=== PATIENT | female | born 1945 | race Caucasian/White ===

== ENCOUNTER 2019-11-14 07:47 | Outpatient (RCR) | payer MEDICARE, SELFPAY ==
--- NOTE | 2019-10-18 08:44 | PCWOUND ---
Patient called to cancel appointment due to not feeling well. States she will be contacting her Primary today. Appointment rescheduled for Tuesday10/22/19 at 10:00AM.
== END 2019-12-02 23:59 | disposition home or self-care (01) ==
LOC: ANHWOC 07:47
PROVIDERS: Visit Provider Plastic Surgery
DX: L98.499 Non-pressure chronic ulcer of skin of other sites with unspecified severity (principal)
CPT/HCPCS: 99212; G0463

== ENCOUNTER 2020-03-13 07:16 | Outpatient (RCR) | payer MEDICARE, SELFPAY ==
--- NOTE | 2020-01-15 08:58 | PCWOUND ---
WOCN NOTE Patient called to cancel until further notice due to fear of COVID 19. Patient to call weekly for care plan.
== END 2020-03-16 23:59 | disposition home or self-care (01) ==
LOC: ANHWOC 07:16
PROVIDERS: Visit Provider Plastic Surgery
DX: L98.499 Non-pressure chronic ulcer of skin of other sites with unspecified severity (principal)
CPT/HCPCS: 99212; A9270; G0463

== ENCOUNTER 2020-05-14 09:43 | Outpatient (RCR) | payer MEDICARE, SELFPAY | END 2020-07-28 12:26 | disposition home or self-care (01) | LOC: ANHWOC 09:43 | PROVIDERS: PCP Internal Medicine; Visit Provider Plastic Surgery | DX: L98.499 Non-pressure chronic ulcer of skin of other sites with unspecified severity (principal) | CPT/HCPCS: 99212; G0463 ==

== ENCOUNTER 2024-02-08 12:49 | Inpatient (IN) | payer MEDICARE, MEDICAID, SELFPAY ==
[2024-02-08] VITALS (20 sets, daily range): BP systolic 103–148; BP diastolic 45–107; PULSE 93–142; RESP 20–30; TEMP 35.8–36.8; O2SAT 95–100
--- NOTE | ~2024-02-08 | CT_ITS ---
EXAMINATION: CTA chest PE protocol DATE: 02/08/2024 17:09 CDT INDICATION: Shortness of breath. Elevated d-dimer. TECHNIQUE: Computed tomographic angiography (CTA) of the chest was performed with 100 mL Omnipaque-35 0 intravenous contrast. The dose-length product was 734.92 mGy-cm. Maximum intensity projection 3D-re constructions of the aorta and other arteries were constructed by the technologist on a separate work station. Automated exposure control and iterative reconstruction technique were employed. COMPARISON: CT report dated 11/20/2011. FINDINGS: Moderate left and small right pleural effusions. Study is technically adequate without evid ence for pulmonary embolism. There is atherosclerosis of the aorta and coronary arteries. Large hiata l hernia. There are changes of gastric bypass surgery. Cardiomegaly. No significant pericardial effus ion. There are patchy areas of consolidation and groundglass opacification bilaterally, suspicious fo r pneumonia. There is severe thoracic and upper lumbar spondylosis. IMPRESSION: 1. Patchy consolidation and groundglass opacification of both lungs with confluent consolidation in t he left lower lobe. This may represent a combination of pneumonia and/or atelectasis. 2: Bilateral pleural effusions, left greater than right. 3: No evidence for pulmonary embolism. Reviewed, dictated and finalized at location A. IMPRESSION: 1. Patchy consolidation and groundglass opacification of both lungs with conflu ent consolidation in the left lower lobe. This may represent a combination of p neumonia and/or atelectasis. 2: Bilateral pleural effusions, left greater than right. 3: No evidence for pulmonary embolism.
--- NOTE | ~2024-02-08 | XR_ITS ---
EXAMINATION: XR chest 1V portable DATE: 02/08/2024 13:26 INDICATION: Shortness of breath. TECHNIQUE: A single frontal view of the chest was obtained. COMPARISON: None. FINDINGS: There is a diffuse interstitial pattern in the lungs. There are airspace opacities in left lower lung zone. There is a moderate-sized left pleural effusion. No pneumothorax. The heart size is normal. There are surgical clips in the abdomen. There is a total right shoulder arthroplasty. IMPRESSION: 1. Interstitial pattern in the lungs, likely mild pulmonary edema. 2. Moderate-sized left pleural effusion. 3. Airspace opacities at left lung base, consistent with atelectasis versus pneumonia. Reviewed, dictated and finalized at location A. IMPRESSION: 1. Interstitial pattern in the lungs, likely mild pulmonary edema. 2. Moderate-sized left pleural effusion. 3. Airspace opacities at left lung base, consistent with atelectasis versus pne umonia.
--- NOTE | ~2024-02-08 | US_ITS ---
EXAMINATION: US venous doppler [facility] DATE: 02/10/2024 10:31 INDICATION: Lower limb edema. TECHNIQUE: Grayscale ultrasound images without and with compression and Doppler ultrasound images of the bilateral lower extremity veins were obtained. COMPARISON: None. FINDINGS: The visualized portions of right common femoral vein, profunda (deep) femoral vein, femoral vein, pop liteal vein, peroneal veins, posterior tibial veins, and greater saphenous vein outflow are patent. The visualized portions of left common femoral vein, profunda femoral vein, femoral vein, popliteal v ein, peroneal veins, posterior tibial veins, and greater saphenous vein outflow are patent. IMPRESSION: 1. No deep venous thrombosis. Reviewed, dictated and finalized at location A.
--- NOTE | ~2024-02-08 | XR_ITS ---
XR chest 1V portable DATE: 02/10/2024 21:05 INDICATION: Shortness of breath TECHNIQUE: Portable upright AP chest on February 10, 2024 at 2058 hours COMPARISON: February 08, 2024 CTA chest FINDINGS: Cardiomegaly. Aortic arch calcification. There is pulmonary vascular congestion. There are bilateral pulmonary infiltrates involving particula rly the central and lower lung zones, with increased retrocardiac density on the left consistent with left lower lobe atelectasis and/or consolidation and left pleural effusion. Small right pleural effu tran. Diffuse osteopenia. Right glenohumeral joint replacement. Prominent dextroscoliosis of the thoracic spine. Postoperative changes are noted in the upper abdomen. IMPRESSION: Cardiomegaly, probable congestive heart failure with pulmonary edema. Pneumonia is not ex cluded Left lower lobe atelectasis/consolidation Bilateral pleural effusions Reviewed, dictated and finalized at location A. IMPRESSION: Cardiomegaly, probable congestive heart failure with pulmonary andry a. Pneumonia is not excluded Left lower lobe atelectasis/consolidation Bilateral pleural effusions
--- NOTE | 2024-02-08 12:56 | ECG_ITS ---
Measurements Intervals [place] Rate: 106 P: * NC: * QRS: 7 QRSD: 76 T: 30 QT: 288 Avg RR 565 QTc: 350 QTcB 383 QTcF 348 Interpretive Statements SATRIAL FIBRILLATION WITH RAPID VENTRICULAR RESPONSE LOW QRS VOLTAGE IN PRECORDIAL LEADS [QRS DEFLECTION < 1.0 mV IN CHEST LEADS] POOR R-WAVE PROGRESSION ABNORMAL RHYTHM ECG SEE SCANNED COPY FOR SIGNATURE MTDD
--- NOTE | 2024-02-08 13:02 | ED.GENADULT ---
HPI - General Adult General Chief complaint: Shortness of Breath/Dyspnea Stated complaint: dyspnea, cpap History of Present Illness HPI narrative: 78 years old white female came from home by ambulance because of shortness of breath for the last 4 weeks. Was seen at [facility] out on and transferred to [facility] and got discharged 1 week ago unknown diagnosis. Patient does not like to go back to the again. Patient is telling me that her left breast is bruised because they tried to get blood out. Patient also have some bruises of the right leg and right elbow secondary to fall before going to [facility]. Patient denies any history of COPD, congestive heart failure, anti-platelet or anticoagulant medication. Currently denies any chest pain or back pain. Related Data Home Medications Medication Instructions Recorded Confirmed Calcium Carb/Wit D3/Vit K1 1 tablet PO BID 08/28/19 Losartan Potassium 50 mg PO DAILY 08/28/19 ascorbic acid-ascorbate sodium 500 mg PO BID 08/28/19 08/28/19 (vitamin C) 500 mg oral wafer mecobalamin (vitamin B12) 5,000 mcg PO DAILY 08/28/19 mcg disintegrating tablet omega-3 120 ae-dnl-ids-fish oil cap PO DAILY 08/28/19 400 mg-L. casei 4 billion cell capsule (Restora) pyridoxine (vitamin B6) 100 mg 100 mg PO DAILY 08/28/19 08/28/19 tablet (Vitamin B-6) zinc amino acid chelate 50 mg 50 mg PO BID 08/28/19 08/28/19 tablet Allergies Allergy/AdvReac Type Severity Reaction Status Date / Time Sulfa (Sulfonamide Allergy Unknown Verified 12/17/19 14:32 Antibiotics) Honey Bee Allergy Severe Anaphylactic Uncoded 06/28/18 12:12 Shock old style rubber Allergy Intermediate Hives / Uncoded 06/28/18 12:12 Red Face Review of Systems Review of Systems: All systems reviewed & are unremarkable except as noted in HPI and below Exam Narrative: General appearance: Well-developed, well-nourished, patient on BiPAP during examination 10/05 Skin: Normal color, bruises left breast, right lower leg anteriorly, right elbow Head: Normocephalic, nontraumatic Eyes: Clear conjunctiva ENT: Oropharynx normal, ears normal, nose normal Neck: Supple, nontender Chest and respiratory: Airway patent, no respiratory distress, no accessory muscle use Heart: Regular rate/rhythm Abdomen: Soft, nontender, no organomegaly, quiet bowel sounds Vascular: Normal peripheral pulses, normal capillary refill. Musculoskeletal: Normal range of motion, nontender back Neurologic: Alert and oriented ?3, J[employer]ER is normal as tested, no gross motor deficit Course Vital Signs Vital signs: Vital Signs Temperature 35.8 C L 02/08/24 12:47 Pulse Rate 104 H 02/08/24 12:47 Respiratory Rate 28 H 02/08/24 12:47 Blood Pressure 148/82 H 02/08/24 12:47 Oxygen Delivery BiPAP 02/08/24 12:47 Temperature 36.8 C 02/08/24 20:00 Pulse Rate 103 H 02/08/24 20:00 Respiratory Rate 25 H 02/08/24 20:00 Blood Pressure 124/61 02/08/24 20:00 Pulse Oximetry 100 02/08/24 20:00 Oxygen Delivery BiPAP 02/08/24 19:50 Medical Decision Making MDM Narrative Medical decision making narrative: PATIENT CAME FROM HOME BY AMBULANCE WITH SHORTNESS OF BREATH. PATIENT ARRIVES ON BIPAP. PATIENT NORMALLY NOT ON OXYGEN, NOT ON BIPAP, DOES NOT HAVE ANY HISTORY OF COPD OR CONGESTIVE HEART FAILURE. DIFFERENTIAL DIAGNOSIS CORONARY ARTERY DISEASE, CHF, PNEUMONIA, PLEURAL EFFUSION, PULMONARY EMBOLISM, BLOOD WORKUP TODAY SHOWED WBC OF 11.6 D-DIMER 3.6 SODIUM 125 BNP 5650. NO OLD RECORDS FOR COMPARISON. ACCORDING TO HER FAMILY THAT PATIENT WAS HOSPITALIZED AT [facility] FOR 2 WEEKS AND GOT DISCHARGED 1 WEEK AGO WITH [facility]
[2024-02-08 13:18] LABS: Basophils Absolute Auto 0.1 K/mm3 (0.0-0.1); Basophils Percent Auto 0.6 % (0.2-1.2); Eosinophils Absolute Auto 0.4 K/mm3 (0-0.3); Eosinophils Percent Auto 3.5 % (0-4.4); Hematocrit 29.3 % (37.0-47.0); Hemoglobin 9.2 g/dL (12.0-15.0); Immature Granulocyte Absolute 0.05 K/mm3 (0.00-0.031); Immature Granulocyte Percent A 0.4 % (0-0.5); Lymphocytes Absolute Auto 1.03 K/mm3 (0.9-3.2); Lymphocytes Percent Auto 8.9 % (18.3-44.2); Mean Corpuscular HGB Conc 31.4 g/dl (32-36); Mean Corpuscular Hemoglobin 28.4 pg (26-34); Mean Corpuscular Volume 90.4 fl (80-100); Mean Platelet Volume 9.8 fl (7.4-10.4); Monocytes Absolute Auto 0.9 K/mm3 (0.1-0.6); Monocytes Percent Auto 7.4 % (2.6-8.5); Neutrophils Absolute Auto 9.1 K/mm3 (1.3-6.7); Neutrophils Percent Auto 79.2 % (45.5-73.1); Platelet Count Result 316 k/mm3 (150-375); Red Blood Count 3.24 M/mm3 (4.2-5.4); Red Cell Distribution Width 18.6 % (11.5-14.5); White Blood Count 11.6 K/mm3 (4.5-10.0)
[2024-02-08 13:25] LABS: Lactic Acid Reflex 1.3 mmol/L (0.7-2.0)
[2024-02-08 13:27] LABS: Prothrombin Time 13.5 Seconds (11.1-14.7)
[2024-02-08 13:28] LABS: Partial Thromboplastin Time 37.9 Seconds (22.3-36.8)
[2024-02-08 13:48] LABS: D Dimer 3.61 ug/mL (<0.48)
--- NOTE | 2024-02-08 16:16 | PC.NURSE ---
ok to cancel order for UA at this time
[2024-02-08 16:53] LABS: Estimated CRCL calculation 71 ml/min; Estimated Glomerular Filt Rate > 60
--- NOTE | 2024-02-08 17:10 | PC.NURSE ---
patient taken to CT with BiPap with financial underwriter and RT. tolerated well
[2024-02-08 17:15] LABS: Alanine Aminotransferase 51 U/L (6-35); Albumin Level 2.9 g/dL (3.5-5.1); Alkaline Phosphatase 113 U/L (38-126); Anion Gap 2 mmol/L (4-12); Aspartate Amino Transferase 85 U/L (14-36); Bilirubin,Total 0.7 mg/dL (0.2-1.3); Blood Urea Nitrogen 23 mg/dL (7-17); Calcium 8.4 mg/dL (8.4-10.2); Carbon Dioxide 27 mmol/L (22-30); Chloride 96 mmol/L (98-107); Estimated CRCL calculation 83 ml/min; Estimated Glomerular Filt Rate > 60; Glucose 132 mg/dL (65-110); Magnesium 2.1 mg/dL (1.6-2.3); Potassium 4.9 mmol/L (3.4-5.0); Sodium 125 mmol/L (137-145)
[2024-02-08 17:31] LABS: NT Pro B Type Natriuretic Pept 5650 pg/mL (19.9-100); Troponin I 0.094 ng/mL (0.000-0.034)
[2024-02-08] MEDS: levoFLOXacin 750 MG/D5W 150 ML 750 MG/150 ML BAG 100 MG IVPB (19:02)
[2024-02-08] MEDS: FUROSEMIDE INJ 100 MG/10 ML VIAL 60 MG IV PUSH (19:02)
--- NOTE | 2024-02-08 19:23 | PC.NURSE ---
40mg lasix given instead of 60mg per provider d/t BP
--- NOTE | 2024-02-08 20:38 | PM.IMHP ---
H&P: HPI History of Present Illness Date/Time: 02/08/24 20:38 Chief Complaint: shortness of breath Narrative: This is a 78-year-old female with past medical history significant for morbid obesity, hypertension, dyslipidemia, chronic kidney disease, hyponatremia. patient was brought to the emergency room due to shortness of breath, worsening swelling of bilateral lower extremities, chills, night sweats, fevers, denies nausea, vomiting, diarrhea, abdominal pain. preliminary workup was significant for a sodium of 125. A CT angiogram of the chest PE protocol ruled out acute pulmonary embolism but is significant for lung infiltrates. Patient is been admitted for further evaluation management and treatment. EXAMINATION: XR chest 1V portable DATE: 02/08/2024 13:26 INDICATION: Shortness of breath. TECHNIQUE: A single frontal view of the chest was obtained. COMPARISON: None. FINDINGS: There is a diffuse interstitial pattern in the lungs. There are airspace opacities in left lower lung zone. There is a moderate-sized left pleural effusion. No pneumothorax. The heart size is normal. There are surgical clips in the abdomen. There is a total right shoulder arthroplasty. IMPRESSION: 1. Interstitial pattern in the lungs, likely mild pulmonary edema. 2. Moderate-sized left pleural effusion. 3. Airspace opacities at left lung base, consistent with atelectasis versus pneumonia. EXAMINATION: CTA chest PE protocol DATE: 02/08/2024 17:09 CDT INDICATION: Shortness of breath. Elevated d-dimer. TECHNIQUE: Computed tomographic angiography (CTA) of the chest was performed with 100 mL Omnipaque-350 intravenous contrast. The dose-length product was 734.92 mGy-cm. Maximum intensity projection 3D-reconstructions of the aorta and other arteries were constructed by the technologist on a separate workstation. Automated exposure control and iterative reconstruction technique were employed. COMPARISON: CT report dated 11/20/2011. FINDINGS: Moderate left and small right pleural effusions. Study is technically adequate without evidence for pulmonary embolism. There is atherosclerosis of the aorta and coronary arteries. Large hiatal hernia. There are changes of gastric bypass surgery. Cardiomegaly. No significant pericardial effusion. There are patchy areas of consolidation and groundglass opacification bilaterally, suspicious for pneumonia. There is severe thoracic and upper lumbar spondylosis. IMPRESSION: 1. Patchy consolidation and groundglass opacification of both lungs with confluent consolidation in the left lower lobe. This may represent a combination of pneumonia and/or atelectasis. 2:? Bilateral pleural effusions, left greater than right. 3:? No evidence for pulmonary embolism. Review of Systems Review of Systems: Chills, fevers, worsening bilateral lower extremity edema Constitutional: Constitutional: Reports chills, Reports fever(s), Reports malaise, Reports night sweats and Reports weakness Eyes: Eyes: Denies change in vision ENT: Denies dysphagia and Denies odynophagia Cardiovascular: Cardiovascular: Denies chest pain, Reports leg edema and Reports dyspnea Respiratory: Respiratory: Denies chest congestion, Denies cough and Denies excessive phlegm production Gastrointestinal: Gastrointestinal: Denies abdominal pain, Denies dyspepsia, Denies diarrhea, Denies nausea and Denies vomiting Genitourinary: Genitourinary: Denies dysuria Musculoskeletal: Musculoskeletal: Reports muscle weakness Integumentary/Breasts: Skin/Breast: Denies rash Neurologic: Denies focal weakness and Denies Sensory deficit (Neuro) Psychiatric: Psychiatric: Reports no additional psychiatric complaints and Reports as per HPI Endocrine: Endocrine: Denies cold intolerance, Denies fatigue, Denies flushing, Denies heat intolerance, Denies polyphagia, Denies polydipsia, Denies polyuria and Denies palpitations Hematologic/Lymphatic: Hematologic/Lymphatic: Repor
[2024-02-08 20:57] LABS: MRSA (PCR) DETECTED (NOT DETECTE)
[2024-02-08 21:10] LABS: Troponin I 0.076 ng/mL (0.000-0.034)
--- NOTE | 2024-02-08 23:36 | PC.NURSE ---
Assumed care of pt. Alert and oriented at this time. Tech at bedside for trop and EKG. VSS. Will cont to monitor.
[2024-02-08] MEDS: SODIUM CHLORIDE 0.9% IV 1,000 ML 60 ML IV CONT (23:49)
[2024-02-09] VITALS (16 sets, daily range): BP systolic 122–160; BP diastolic 65–89; PULSE 71–127; RESP 20–24; TEMP 35.9–36.6; O2SAT 96–100; BMI 40.1
--- NOTE | 2024-02-09 | ECHO_ITS ---
Patient Info Name: Chanel Bob Age: 78 years : 1945 Gender: Female Ht: 63 in Wt: 209 lbs BSA: 2.10 m2 HR: 100 bpm BP: 141 / 72 mmHg Heart Rhythm: Atrial Fibrillation Technical Quality: Fair Exam Date: 02/09/2024 12:15 PM Exam Location: Echo Lab Exam Room: [facility] Patient Status: Inpatient Admit Date: 02/09/2024 Staff Ordering Physician: Karuna Sims APRN Ticket Broker: Marah Bynum RDCS Attending Provider: Em Julian MD Referring Physician: Levi IVEY; Exam Type: CA echo doppler color flow Study Info Indications - elevated BNP Complete two-dimensional, color flow and Doppler transthoracic echocardiogram is performed. Summary 1. Complete two-dimensional, color flow and Doppler transthoracic echocardiogram is performed. 2. Left ventricular chamber dimension is normal. 3. Left ventricular systolic function is normal, estimated at 60-65%. 4. The left ventricular diastolic function is abnormal. 5. E/e' 16 is elevated. 6. Left atrial chamber dimension is moderately enlarged. 7. Right atrial chamber dimension is mildly enlarged. 8. The aortic valve is not well visualized. Cannot determine number of aortic valve leaflets. 9. There is moderate aortic valve sclerosis. 10. The mitral valve has moderately calcified annulus. 11. There is mild mitral valve regurgitation. 12. There is mild tricuspid valve regurgitation. 13. Mild pulmonary hypertension, estimated pulmonary arterial systolic pressure is 45 mmHg. 14. Normal inferior vena cava with <50% collapse upon inspiration consistent with elevated right atrial pressure, 10 mmHg. Left Ventricle E/e' 16 is elevated. Left ventricular chamber dimension is normal. Left ventricular systolic function is normal, estimated at 60-65%. The left ventricular diastolic function is abnormal. Right Ventricle Right ventricular chamber dimension is normal. Right ventricular systolic function is normal. Left Atria Left atrial chamber dimension is moderately enlarged. Right Atria Right atrial chamber dimension is mildly enlarged. Aortic Valve There is no aortic valve stenosis based on valve area and gradients. The aortic valve is not well visualized. Cannot determine number of aortic valve leaflets. There is moderate aortic valve sclerosis. There is no aortic valve regurgitation. Pulmonic Valve There is no pulmonic regurgitation. Mitral Valve The mitral valve has moderately calcified annulus. There is no mitral valve stenosis. There is mild mitral valve regurgitation. Tricuspid Valve There is mild tricuspid valve regurgitation. Mild pulmonary hypertension, estimated pulmonary arterial systolic pressure is 45 mmHg. Pericardium/Pleural There is no pericardial effusion. Inferior Vena Cava Normal inferior vena cava with <50% collapse upon inspiration consistent with elevated right atrial pressure, 10 mmHg. Aorta The aortic root size at the sinus of Valsalva is normal. Left Ventricular Outflow Tract Name Value Normal LVOT 2D LVOT Diameter 2.0 cm LVOT Doppler LVOT Peak Gradient 6 mmHg LVOT Mean Gradient 4 mmHg LVOT VTI 22 cm
[2024-02-09 00:47] LABS: Troponin I 0.063 ng/mL (0.000-0.034)
--- NOTE | 2024-02-09 01:16 | PC.NURSE ---
Pt changed out of wet depends and new one placed.
--- NOTE | 2024-02-09 01:32 | ADMGEN ---
This patient, Chanel Bob, was admitted to IMU Room 211-01 at 0125 on 02/09/2024. Patient/family oriented to hospital policies and general routines including ID bracelet, bed and alarms, visiting hours, pain management, procedures, bathroom and other care routines, personal items, smoking policy, room service/diet, and visiting hours. Information on how to activate the Rapid Response Team has been discussed. Patient/Family are encouraged to report perceived risks to care and to ask questions if they do not understand what they are told or what they should do.
[2024-02-09 05:06] LABS: Anion Gap -2 mmol/L (4-12); Blood Urea Nitrogen 24 mg/dL (7-17); Calcium 8.1 mg/dL (8.4-10.2); Carbon Dioxide 32 mmol/L (22-30); Chloride 95 mmol/L (98-107); Estimated CRCL calculation 57 ml/min; Estimated Glomerular Filt Rate > 60; Glucose 123 mg/dL (65-110); Potassium 4.6 mmol/L (3.4-5.0); Sodium 125 mmol/L (137-145)
[2024-02-09] MEDS: ASPIRIN 81 MG CHEWABLE TABLET PO (08:44)
--- NOTE | 2024-02-09 15:50 | PM.IMPN ---
Progress Note: A&P Assessment and Plan (1) Acute respiratory failure: Code(s): J96.00 - Acute respiratory failure, unspecified whether with hypoxia or hypercapnia Status: Acute Assessment and Plan: Patient arrived to the ED from home on BiPAP. She does not wear o2 or bipap at home CXR showing interstial pattern. CTA chest showing patchy consolidation and ground glass opacities of both lungs worse in the LLL c/w PNA and/or atelectasis. Also with bilateral L>R pleural effusions. No PE No ABG. DDimer 3.6 so will check LE venous dopplers Received Lasix IV in the ED. Also started on abx. Was able to be weaned off bipap. Now on room air. Follow (2) Hyponatremia: Code(s): E87.1 - Hypo-osmolality and hyponatremia Status: Acute Assessment and Plan: Recently hospitalized at [place] for 2 weeks for low sodium to 116. Na was 124 at the time of discharge Patient new to our system so no old values to compare Na 125 on admission. Fluid restriction started No urine studies collected yet Sodium level similar on repeat Check urine studies. check TSH and cortisol (3) Pneumonia: Code(s): J18.9 - Pneumonia, unspecified organism Status: Acute Assessment and Plan: Patient presents with SOB. Imaging as above Patient was started on levofloxacin in the ED but change to Rocephin and Azithromycin per abx stewardship (QTC okay) MRSA nasal swab was positive so will add Vancomycin. BCx NGTD Follow WBC. (4) CHF (congestive heart failure): Code(s): I50.9 - Heart failure, unspecified Status: Acute Assessment and Plan: Imaging as above. BNP 5650. Consider CHF exacerbation Lasix IV once in the ED with good UOP but not continued CHF could be causing the hyponatremia. Echo shwong EF 60-65% with abnormal diastolic dysfunction, mild pHTN and mild valvular disease. Resume Lasix IV (5) Elevated troponin: Code(s): R79.89 - Other specified abnormal findings of blood chemistry Status: Acute Assessment and Plan: Troponin elevated but flat at 0.094. Ekg showing AFib with HR mildly elevated. Elevated Trop could be related to CHF and/or AFib Ischemia evaluation once she is better. (6) Atrial fibrillation with rapid ventricular response: Code(s): I48.91 - Unspecified atrial fibrillation Status: Acute Assessment and Plan: EKG on admission showing AFib with RVR with rate mostly <120. Unclear if this is new or old. Start metoprolol. [id number] score at least 4. Will hold anti-coagulation for now since anemic and she is fall risk. (7) Obesity (BMI 35.0-39.9 without comorbidity): Code(s): E66.9 - Obesity, unspecified Status: Acute Assessment and Plan: 1800 calorie restricted diet Plan Anemia - according to the family, patient has chronic anemia and did receive a unit of blood. No blood stool iin stool. Check iron studies, etc DVT prophylaxis - lovenox Codes status - full Subjective Date/time seen: 02/09/24 15:50 Interval history: 78yo female with HTN here for shortness of breath. She denies CP or cough. Has persistent SOB. No n/v. Has resolving bruising to the RLE from a fall. Walks with walker Exam Narrative: AF 97.6 143/89 100 24 100% ra Gen - NARD Chest - decreased BS in the bases L>R with inspiratory crackles mid and lower lung monroy CV - irregularly irregular S1/S2. Tele showing AFib Abd - Soft, NT/ND, Positive BS Ext - trace-1+ pedal edema Psych - Nml mood and affect Skin - resolving ecchymosis with small hematoma to the right medial calf. scarring to abd wall with eschar and small shallow ulcer suprapubic area numbering about 6 Objective Data Vital Signs Vital Signs: Vital Signs - 24 hr 02/08/24 15:55 02/08/24 19:50 02/08/24 20:00 Temperature 98.2 F Pulse Rate 103 H Respiratory Rate 30 H 25 H Blood Pressure 124/61 Pulse Oximetry 99 100 Oxygen
[2024-02-09] MEDS: AZITHROMYCIN 250 MG TABLET 500 MG PO (16:39)
[2024-02-09] MEDS: VANCOMYCIN 1,250 MG/NS 250 ML 1,250 MG/250 ML BAG 166.67 MG IVPB (17:08)
[2024-02-09 17:50] LABS: Sodium 126 mmol/L (137-145)
[2024-02-09] MEDS: SODIUM CHLORIDE 0.9% IV 1,000 ML 60 ML IV CONT (18:26)
[2024-02-09] MEDS: VANCOMYCIN 1,000 MG/NS 250 ML 1,000 MG/250 ML BAG 250 MG IVPB (18:27)
[2024-02-09 20:17] LABS: Sodium 125 mmol/L (137-145)
[2024-02-09] MEDS: ALBUTEROL SULFATE (*SP) AEROSOL 1 PUFF 2 PUFF INHALATION (21:55)
[2024-02-09] MEDS: IPRATROPIUM 0.5 MG/ALBUTEROL SULFATE 2.5 MG AMPUL.NEB 3 ML INHALATION (22:29)
[2024-02-09] MEDS: METOPROLOL TARTRATE 25 MG TABLET PO (22:51)
[2024-02-09] MEDS: ENOXAPARIN 40 MG/0.4 ML SYRINGE SUB-Q (22:52)
[2024-02-09] MEDS: LIDOCAINE 5% PATCH 1 PATCH TRANSDERM (22:52)
[2024-02-10] VITALS (19 sets, daily range): BP systolic 143–180; BP diastolic 63–174; PULSE 54–83; RESP 20–28; TEMP 36.1–36.4; O2SAT 80–100
[2024-02-10 00:45] LABS: Sodium 128 mmol/L (137-145)
[2024-02-10] MEDS: IPRATROPIUM 0.5 MG/ALBUTEROL SULFATE 2.5 MG AMPUL.NEB 3 ML INHALATION ×4 (02:30→21:21)
[2024-02-10 04:20] LABS: Basophils Absolute Auto 0.1 K/mm3 (0.0-0.1); Basophils Percent Auto 0.9 % (0.2-1.2); Eosinophils Absolute Auto 0.5 K/mm3 (0-0.3); Eosinophils Percent Auto 6.4 % (0-4.4); Hematocrit 25.2 % (37.0-47.0); Hemoglobin 7.8 g/dL (12.0-15.0); Immature Granulocyte Absolute 0.04 K/mm3 (0.00-0.031); Immature Granulocyte Percent A 0.5 % (0-0.5); Lymphocytes Percent Auto 6.4 % (18.3-44.2); Mean Corpuscular Hemoglobin 28.3 pg (26-34); Mean Corpuscular Volume 91.3 fl (80-100); Mean Platelet Volume 9.3 fl (7.4-10.4); Monocytes Absolute Auto 0.5 K/mm3 (0.1-0.6); Monocytes Percent Auto 6.3 % (2.6-8.5); Neutrophils Absolute Auto 6.2 K/mm3 (1.3-6.7); Neutrophils Percent Auto 79.5 % (45.5-73.1); Platelet Count Result 281 k/mm3 (150-375); Red Blood Count 2.76 M/mm3 (4.2-5.4); Red Cell Distribution Width 18.3 % (11.5-14.5); White Blood Count 7.8 K/mm3 (4.5-10.0)
[2024-02-10 04:25] LABS: Albumin Level 3.2 g/dL (3.5-5.1); Anion Gap 4 mmol/L (4-12); Blood Urea Nitrogen 17 mg/dL (7-17); Calcium 8.5 mg/dL (8.4-10.2); Carbon Dioxide 27 mmol/L (22-30); Chloride 99 mmol/L (98-107); Estimated CRCL calculation 79 ml/min; Estimated Glomerular Filt Rate > 60; Glucose 135 mg/dL (65-110); Magnesium 2.2 mg/dL (1.6-2.3); Potassium 4.6 mmol/L (3.4-5.0); Sodium 130 mmol/L (137-145)
[2024-02-10 04:27] LABS: Iron 36 ug/dL (37-170)
[2024-02-10 04:37] LABS: Percent Iron Saturation 12 % (20-50)
[2024-02-10 05:27] LABS: Free T4 Free Thyroxine Reflex 1.03 ng/dL (0.78-2.19)
[2024-02-10 05:32] LABS: Folic Acid 4.8 ng/mL (2.76->20); Vitamin B12 > 1000.0 pg/mL (239-931)
[2024-02-10 06:22] LABS: Total Triiodothyronine (T3) 0.96 NG/ML (0.97-1.69)
[2024-02-10] MEDS: ACETAMINOPHEN 325 MG TABLET 650 MG PO ×2 (08:22→12:34)
[2024-02-10] MEDS: ASCORBIC ACID 500 MG TABLET 1000 MG PO (08:22)
[2024-02-10] MEDS: ASPIRIN 81 MG CHEWABLE TABLET PO (08:22)
[2024-02-10] MEDS: FERROUS SULFATE 325 MG TABLET DR BY MOUTH (08:22)
[2024-02-10] MEDS: CALCIUM/VITAMIN D 500 MG/5 MCG (200 I.U.) TABLET 1000 MG PO (08:23)
[2024-02-10] MEDS: METOPROLOL TARTRATE 25 MG TABLET PO ×2 (08:23→20:29)
[2024-02-10] MEDS: FUROSEMIDE INJ 40 MG/4 ML VIAL IV PUSH ×2 (08:24→16:57)
[2024-02-10] MEDS: ENOXAPARIN 40 MG/0.4 ML SYRINGE SUB-Q (08:24)
[2024-02-10] MEDS: AZITHROMYCIN 250 MG TABLET PO (08:24)
[2024-02-10] MEDS: VANCOMYCIN 1,500 MG/NS 500 ML 1,500 MG/500 ML BAG 250 MG IVPB (11:43)
[2024-02-10 12:17] LABS: Appearance Urine Clear (Clear); Bacteria Urine None Seen /hpf; Bilirubin Urine Negative (Negative); Blood Urine Negative (Negative); Color Urine Yellow (Yellow); Glucose Urine UA Negative (Negative); Ketones Urine Negative (Negative); Leukocyte Esterase Ur Trace LEU/UL (Negative); Nitrate Urine Negative (Negative); Non Pathogenic Casts 0-2; Protein Urine Negative (Negative); RBC Urine 0-2 /hpf (0-2); Specific Grav Ur 1.014 (1.001-1.035); Squamous Epithelial Cell Urine Occasional /hpf (Few); Urobilinogen Urine 0.2 mg/dL (<2.0); WBC Urine 0-5 /hpf (0-3); pH Urine 5.5 (5.0-9.0)
[2024-02-10 12:23] LABS: Add Urine Microscopic? YES
[2024-02-10 12:27] LABS: Total Protein Urine Random 18 mg/dL; Urea Random Urine 452 MG/DL
[2024-02-10 12:29] LABS: Sodium Urine Random 81 meq/L
--- NOTE | 2024-02-10 16:31 | PM.IMPN ---
Progress Note: A&P Assessment and Plan (1) Acute respiratory failure: Code(s): J96.00 - Acute respiratory failure, unspecified whether with hypoxia or hypercapnia Status: Acute Assessment and Plan: Patient developed respiratory failure at home and arrived to the ED on BiPAP. She does not wear O2 or bipap at home CXR showing interstital pattern. CTA chest showing patchy consolidation and ground glass opacities of both lungs worse in the LLL c/w PNA and/or atelectasis. Also with bilateral L>R pleural effusions. No PE No ABG. DDimer 3.6. LE venous dopplers negative for DVT Received Lasix IV in the ED and started on abx. Was able to be weaned off bipap. 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 Treatment reviewed and was discharged with Na around 127-128 Patient new to our system so no old values to compare so do not have baseline values Na 125 on admission. Fluid restriction started Sodium level better today at 130. TSH mildly elevated but cortisol okay. Continue fluid restriction (3) Pneumonia: Code(s): J18.9 - Pneumonia, unspecified organism Status: Acute Assessment and Plan: Patient presents with SOB. Imaging as above Patient was started on levofloxacin in the ED but change to Rocephin and Azithromycin per abx stewardship (QTC okay) MRSA nasal swab was positive Vancomycin added BCx NGTD WBC 11.6 on admission but now normal. Continue abx (4) CHF (congestive heart failure): Code(s): I50.9 - Heart failure, unspecified Status: Acute Assessment and Plan: Imaging as above. BNP 5650. Consider CHF exacerbation Lasix IV once in the ED with good UOP but not continued Echo showing EF 60-65% with abnormal diastolic dysfunction, mild pHTN and mild valvular disease. We resumed Lasix IV UOP not accurate. Daily weight not accurate No evidence of contraction alkalosis as was at [facility] Monitor UOP, daily weights, electrolytes and renal function. (5) Elevated troponin: Code(s): R79.89 - Other specified abnormal findings of blood chemistry Status: Acute Assessment and Plan: Troponin elevated but flat at 0.094. Ekg showing AFib with HR mildly elevated. Elevated Trop could be related to CHF and/or AFib Ischemia evaluation once she is better. (6) Atrial fibrillation with rapid ventricular response: Code(s): I48.91 - Unspecified atrial fibrillation Status: Acute Assessment and Plan: EKG on admission showing AFib with RVR with rate mostly <120. Unclear if this is new or old. EKG at [facility] show NSR. She was started on metoprolol. She has converted to NSR. [id number]-edge score at least 4. Spoke with dtr about risks/benefits. Anti-coagulation held for now since anemic and she is fall risk. (7) Anemia: Code(s): D64.9 - Anemia, unspecified Status: Acute Assessment and Plan: Notes from [facility] reviewed. Hgb 10 on admission but slowly declined to 6.3 on 01/31/24 requiring 1U PRBC. Iron studies were consistent with iron deficiency anemia and anemia of chronic disease. She was given IV iron. Iron studies here 36 with TIBC 306 and TSAT 12%. Ferritin 221. Repeat IV iron (8) Obesity (BMI 35.0-39.9 without comorbidity): Code(s): E66.9 - Obesity, unspecified Status: Acute Assessment and Plan: 1800 calorie restricted diet (9) Sternal fracture: Code(s): S22.20XA - Unspecified fracture of sternum, initial encounter for closed fracture Status: Acute Assessment and Plan: Old records reviewed from [facility]. Patient hospitalized January 18 after a fall. She had a fall a few weeks prior to that admission resulting in rib fractures and
[2024-02-10] MEDS: IRON SUCROSE COMPLEX 100 MG in SODIUM CHLORIDE 0.9% IV 50 ML 220 MG IVPB (18:10)
[2024-02-10 20:35] LABS: Glucose Point of Care 205 mg/dl (65-105)
[2024-02-11] VITALS: BP 165/84; PULSE 60; PULSE 71; RESP 20; TEMP 36.4; O2SAT 98
[2024-02-11] MEDS: IPRATROPIUM 0.5 MG/ALBUTEROL SULFATE 2.5 MG AMPUL.NEB 3 ML INHALATION (02:28)
[2024-02-11 02:29] VITALS: PULSE 60; RESP 18
[2024-02-11 02:37] VITALS: PULSE 64; RESP 18
[2024-02-11 04:00] VITALS: PULSE 57
[2024-02-11 05:02] LABS: Basophils Percent Auto 0.7 % (0.2-1.2); Eosinophils Absolute Auto 0.1 K/mm3 (0-0.3); Eosinophils Percent Auto 1.3 % (0-4.4); Hematocrit 30.8 % (37.0-47.0); Hemoglobin 9.1 g/dL (12.0-15.0); Immature Granulocyte Absolute 0.02 K/mm3 (0.00-0.031); Immature Granulocyte Percent A 0.3 % (0-0.5); Lymphocytes Absolute Auto 0.49 K/mm3 (0.9-3.2); Mean Corpuscular HGB Conc 29.5 g/dl (32-36); Mean Corpuscular Hemoglobin 28.3 pg (26-34); Mean Corpuscular Volume 95.7 fl (80-100); Mean Platelet Volume 9.2 fl (7.4-10.4); Monocytes Absolute Auto 0.4 K/mm3 (0.1-0.6); Monocytes Percent Auto 6.9 % (2.6-8.5); Neutrophils Absolute Auto 5.1 K/mm3 (1.3-6.7); Neutrophils Percent Auto 82.8 % (45.5-73.1); Platelet Count Result 306 k/mm3 (150-375); Red Blood Count 3.22 M/mm3 (4.2-5.4); Red Cell Distribution Width 17.6 % (11.5-14.5); White Blood Count 6.1 K/mm3 (4.5-10.0)
[2024-02-11 05:17] LABS: Glucose Point of Care 155 mg/dl (65-105)
[2024-02-11 05:21] LABS: Anion Gap 1 mmol/L (4-12); Blood Urea Nitrogen 17 mg/dL (7-17); Calcium 8.5 mg/dL (8.4-10.2); Carbon Dioxide 27 mmol/L (22-30); Chloride 98 mmol/L (98-107); Estimated CRCL calculation 96 ml/min; Estimated Glomerular Filt Rate > 60; Glucose 139 mg/dL (65-110); Potassium 5.7 mmol/L (3.4-5.0); Sodium 126 mmol/L (137-145)
[2024-02-11 05:22] LABS: Vancomycin Trough 15.3 ug/mL (10.0-20.0)
[2024-02-11 05:31] VITALS: BP 147/55; PULSE 76; TEMP 32.9; O2SAT 83
[2024-02-11 05:33] LABS: Alveolar/Arterial O2 Gradient < 0.0 mmHg; Base Excess ABG 2.9 mEq/l (+/-2.0); Fractional Inspired Oxygen 56 %; HCO3 ABG 33.5 mEq/l (22.0-26.0); Oxygen Content ABG 14.9 %vol (16.0-22.0); Oxygen Saturation ABG 99.5 % (95.0-100.0); Oxyhemoglobin 98.3 % THb (90.0-100.0); PO2 ABG 293.9 mmHg (80.0-100.0); PO2 FiO2 Ratio Arterial Blood 5.25 %; Total Hemoglobin 10.2 g/dL (12.0-18.0)
[2024-02-11 05:51] LABS: Modified Allen's Test Pass; PCO2 ABG 96.5 mmHg (35.0-45.0); Site Drawn RIGHT FEMORAL; pH ABG 7.159 (7.350-7.450)
[2024-02-11 05:52] LABS: Device HIGH FLOW NASAL CANN
[2024-02-11 05:56] VITALS: RESP 26; O2SAT 85
[2024-02-11 06:15] LABS: Acanthocytes 2+; Large Platelets Present; Platelet Estimate Adequate (Adequate); Schistocytes Rare
[2024-02-11 06:16] LABS: Poikilocytosis 1+
--- NOTE | 2024-02-11 06:23 | PM.CCN ---
Critical Care Event Note Summary Code activated: No Narrative: I had evaluated the patient earlier in the evening nursing staff told me patient was having increasing oxygen requirements. Stat chest x-ray performed at that time demonstrated bilateral pulmonary edema versus pneumonia. The patient was receiving adequate diuresis with Lasix. The patient had had a fair amount of urine output. The patient had been on BiPAP on the day of admission. I asked nursing staff to discuss BiPAP with the patient. The patient refused BiPAP. The patient evidently throughout the rest the night was pulling off oxygen and adamant that she did not want supplemental oxygen. After patient had a bath the patient being more somnolent. And was having apneic respirations. Rapid response was called. When I arrived at the bedside proximally for minutes later gave patient was having agonal her respirations. Patient did have a palpable pulse blood pressure was in the 140 systolic. The patient was cold to touch. A axial temperature was measured at 91.5. At this point in the evaluation the patient's family was contacted by nursing staff. The patient's family stated the patient would not want aggressive interventions and they change the patient's code status to DNR/DNI. I lin ABG in the right femoral. ABG demonstrated pH of 7.1 pCO2 of 95 PO2 of 293 with patient being on non-rebreather that was placed at the time of my arrival at the patient's bedside. Patient was placed on BiPAP in despite escalating BiPAP settings the patient was not pulling adequate tidal volumes. The patient's granddaughter arrived at bedside during these treatment measures. She stated that her mother is the healthcare power of mergers and acquisitions attorney and the patient's only daughter wants the patient to be made comfortable. It was agreed that we would leave the patient on the BiPAP and under Beba Hugger into the patient's daughter could arrive at bedside to say her goodbyes. Because patient was already having episodes of bradycardia with heart rates down into the 30s. The patient's daughter arrived at bedside and wanted the patient to be placed as comfort measures. Orders were placed for comfort measures including morphine and Ativan. The patient's code status was changed to DNR/DNI. All labs and other medications were discontinued except for comfort medications. 60 minute spent in critical care activities. Due to a high probability of clinically significant, life threatening deterioration, the patient required my highest level of preparedness to intervene emergently and I personally spent this critical care time directly and personally managing the patient. This critical care time included obtaining a history; examining the patient; pulse oximetry; ordering and review of studies; arranging urgent treatment with development of a management plan; evaluation of patient's response to treatment; frequent reassessment; and discussions with other providers. It was exclusive of separately billable procedures and treating other patients and teaching time. Please see Assessment and Plan section and the rest of the note for further information on patient assessment and treatment. Critical care time: 30 - 74 mins
[2024-02-11] MEDS: MORPHINE SULFATE (*CRX) 4 MG/ML INJ IV PUSH (06:40)
--- NOTE | 2024-02-11 06:56 | PC.NURSE ---
Patient noted to drop her SpO2 during a bed bath being given by the CCT at approx. 0530. Upon assessment patient's breathing pattern had changed and she was requiring more O2 to maintain an SpO2 > 90. This RN asked for assistance from other nurses and made the decision to go ahead and call a rapid response 0531. See RR and MD documentation. Patient's family was contacted and the decision was made to initially move to a DNR. The patient's family said the patient herself has started to move towards that but hadn't filled out DNR documentation yet. After the family arrived, the decision was made to go comfort measures. Initial comfort meds given per DEC.
--- NOTE | 2024-02-11 07:21 | PM.IMPN ---
Progress Note: A&P Assessment and Plan (1) Acute respiratory failure: Code(s): J96.00 - Acute respiratory failure, unspecified whether with hypoxia or hypercapnia Status: Acute Assessment and Plan: Patient developed respiratory failure at home and arrived to the ED on BiPAP. She does not wear O2 or bipap at home CXR showing interstital pattern. CTA chest showing patchy consolidation and ground glass opacities of both lungs worse in the LLL c/w PNA and/or atelectasis. Also with bilateral L>R pleural effusions. No PE No ABG drawn on admission. DDimer 3.6. LE venous dopplers negative for DVT Received Lasix IV in the ED and started on abx. Resumed on IV Lasix. Was able to be weaned off bipap but still was requiring O2 on occasion. Condition changed abruptly overnight with respiraoty failure with ABG showing respiratory acidosis Was having bradycardia overnight so consider cardiac etiology. VICKEY possible but would have expected serum bicarb to climb with diuresis if she had worsening pCO2. Consider CVA since has pAFib and not on full anticoagulation. DVT/PE less likely since recent testing negative. 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 Treatment reviewed and was discharged with Na around 127-128 Patient new to our system so no old values to compare so do not have baseline values Na 125 on admission. Fluid restriction started TSH mildly elevated but cortisol okay. Sodium level at 126. (3) Pneumonia: Code(s): J18.9 - Pneumonia, unspecified organism Status: Acute Assessment and Plan: Patient presents with SOB. Imaging as above Patient was started on levofloxacin in the ED but change to Rocephin and Azithromycin per abx stewardship (QTC okay) MRSA nasal swab was positive Vancomycin added BCx NGTD WBC 11.6 on admission but now normal. Abx stopped (4) CHF (congestive heart failure): Code(s): I50.9 - Heart failure, unspecified Status: Acute Assessment and Plan: Imaging as above. BNP 5650. Consider CHF exacerbation Lasix IV once in the ED with good UOP but not continued Echo showing EF 60-65% with abnormal diastolic dysfunction, mild pHTN and mild valvular disease. We resumed Lasix IV UOP not accurate. Daily weight not accurate No evidence of contraction alkalosis as was at [facility] Will stop Lasix (5) Elevated troponin: Code(s): R79.89 - Other specified abnormal findings of blood chemistry Status: Acute Assessment and Plan: Troponin elevated but flat at 0.094. Ekg showing AFib with HR mildly elevated but no ST-T wave changes to suggest ischemia Elevated Trop could be related to CHF and/or AFib and/or resp failure Consider cardiac disease to explain her abrupt change (6) Atrial fibrillation with rapid ventricular response: Code(s): I48.91 - Unspecified atrial fibrillation Status: Acute Assessment and Plan: EKG on admission showing AFib with RVR with rate mostly <120. Unclear if this is new or old. EKG at [facility] show NSR. She was started on metoprolol. She has converted to NSR. [id number]-ydxy score at least 4. Spoke with dtr about risks/benefits. Anti-coagulation held for now since anemic and she is fall risk. (7) Anemia: Code(s): D64.9 - Anemia, unspecified Status: Acute Assessment and Plan: Notes from [facility] reviewed. Hgb 10 on admission but slowly declined to 6.3 on 01/31/24 requiring 1U PRBC. Iron studies were consistent with iron deficiency anemia and anemia of chronic disease. She was given IV iron. Iron studies here 36 with TIBC 306 and TSAT 12%. Ferritin 221. (8) Obesity (BMI 35.0-39.9 without comorbidity): Code(s): E66.9 - Obesity, unspecified
--- NOTE | 2024-02-11 08:08 | PC.NURSE ---
0799 This RN was summoned to the pts room per tele monitor noting Asystole. Upon entering the pts room the pt was agonal breathing family at the bedside. Upon listening to the apical pulse for 1 minute signs of life could be heard. Confirmed by a second RN. Report was given to Dr. Soliman. [id number] A second RN confirmed with this RN the pt was absent of vital signs. nail kegger given report on the time of .
--- NOTE | 2024-02-11 10:05 | PC.NURSE ---
0730 Unable to obtain shift report on the pt due to day RN's refusal to give bedside shift report.
--- NOTE | 2024-02-11 17:17 | P.DN_ITS ---
Discharge Summary Date and Time Date of : 02/11/24 Time of : 07:57 Provider Pronounced By: Jenni Garcia RN and Betsey Meyers RN Probable Cause of Probable Cause of : Respiratory failure Summary Hospital Course: Patient developed respiratory failure at home and arrived to the ED on BiPAP. CXR showing interstitial pattern. CTA chest showing patchy consolidation and ground glass opacities of both lungs worse in the LLL c/w PNA and/or atelectasis. Also with bilateral L>R pleural effusions. No PE. DDimer 3.6. LE venous dopplers negative for DVT. Received Lasix IV in the ED and started on abx. Resumed on IV Lasix as well. Was able to be weaned off bipap but still was requiring O2 on occasion. Her condition changed abruptly overnight with respiratory failure with ABG showing respiratory acidosis. Was having bradycardia overnight so consider cardiac etiology. Family wanted to initiate co mfort measures which was done. She on 02/11/24 with family at bedside Additional Data Confirmation of as documented by pronouncing clinician: Pupillary Reflex, Palpable Pulses, Response to Stimuli, Heart Tones and Breath Sounds Name of Provider Notified: Jourdan Time Provider Notified: 08:00 Family Requests Autopsy: No Ear Pull Machine Operator Notified: Yes Date [facility] Notified of : 02/11/24 Time [facility] Notified of : 08:00
== END 2024-02-11 07:57 | disposition expired | DRG 193 ==
LOC: ANHED 18:48 → ANHIMU 02-09 00:27
PROVIDERS: Internal Medicine; Student in an Organized Health Care Education/Training Program; Admitting Provider Internal Medicine; Emergency Provider Emergency Medicine; PCP Internal Medicine; Visit Provider Internal Medicine
DX: J18.9 Pneumonia, unspecified organism (principal); I50.31 Acute diastolic (congestive) heart failure; J96.00 Acute respiratory failure, unspecified whether with hypoxia or hypercapnia; S22.20XA Unspecified fracture of sternum, initial encounter for closed fracture; Z68.41 Body mass index [BMI] 40.0-44.9, adult; E22.2 Syndrome of inappropriate secretion of antidiuretic hormone; I13.0 Hypertensive heart and chronic kidney disease with heart failure and stage 1 through stage 4 chronic kidney disease, or unspecified chronic kidney disease; E11.22 Type 2 diabetes mellitus with diabetic chronic kidney disease; R00.1 Bradycardia, unspecified; N18.9 Chronic kidney disease, unspecified; E66.01 Morbid (severe) obesity due to excess calories; G47.33 Obstructive sleep apnea (adult) (pediatric); I48.91 Unspecified atrial fibrillation; D50.9 Iron deficiency anemia, unspecified; D63.8 Anemia in other chronic diseases classified elsewhere; E78.5 Hyperlipidemia, unspecified; W19.XXXA Unspecified fall, initial encounter
CPT/HCPCS: 36415; 36600; 71045; 71275; 80048; 80053; 80069; 80202; 81001; 82533; 82570; 82607; 82728; 82746; 82805; 82948; 83540; 83550; 83605; 83735; 83880; 84156; 84295; 84300; 84439; 84443; 84480; 84484; 84540; 85025; 85380; 85610; 85730; 87040; 87641; 93005; 93306; 93970; 94002; 94640; 96361; 96365; 96375; 97161; 97166; 99285; A9270; G0378; J0696; J1650; J1756; J1940; J1956; J2270; J3370; J7030; Q9967